=== PATIENT | female | born 1980 | race Caucasian/White ===

== ENCOUNTER 2016-06-15 23:09 | Emergency (ER) ==
[2016-06-15 23:23] VITALS: BP 136/75; TEMP 98.5; BMI 33.9
[2016-06-15] MEDS ORDERED: BACTRIM DS 800/160 MG PO STA (23:33)
--- NOTE | 2016-06-15 23:39 | ED.PDOC ---
General ED Provider: Dr. UZMA KHAN Chief Complaint: Abscess Stated Complaint: SPOT ON THE LEFT LOWER SIDE ABDOMEN, ON THE SURGICAL SCAR, HAD HYSTERECTOMY 3-2015. it drained some stuff 2-3 days ago, Time Seen by Physician: 23:34 Mode of Arrival: Walk-In Information Source: Patient Primary Care Provider: SERGEY RAMSEY Nursing and Triage Documentation Reviewed and Agree: Yes Skin Complaint Exam - Skin/Soft Tissue Complaint/Exam Symptoms Are: Still present Timing: Constant Initial Severity: Mild Current Severity: Mild Character: Reports: Redness, Painful. Denies: Swelling, Raised Aggravating: Reports: Touch Alleviating: Reports: None Associated Signs and Symptoms: Reports: Drainage, Tenderness. Denies: Fever, Chills, Itching, Bruising, Red streaks, Joint swelling Related Surgical History: Reports: None Skin Findings: Present: Erythema, Induration. Absent: Fluctuant mass Differential Diagnoses: Cellulitis Review of Systems - Review Of Systems Constitutional: Reports: No symptoms Eyes: Reports: No symptoms Ears, Nose, Mouth, Throat: Reports: No symptoms Respiratory: Reports: No symptoms Cardiac: Reports: No symptoms GI: Reports: No symptoms : Reports: No symptoms Musculoskeletal: Reports: No symptoms Skin: Reports: No symptoms Neurological: Reports: No symptoms Endocrine: Reports: No symptoms Hematologic/Lymphatic: Reports: No symptoms All Other Systems: Reviewed and Negative Past Medical History - Past Medical History Previously Healthy: No Endocrine: Reports: None Cardiovascular: Reports: None Respiratory: Reports: None Hematological: Reports: None Gastrointestinal: Reports: Other (Irritable bowel syndrome. 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 Denies: None (Partial hysterectomy. Ablation of bladder. ) - Family History Family History: Reports: None - Social History Smoking Status: Current every day smoker, Heavy tobacco smoker Smoking Cessation Counseling Time: > 3 min - 10 min Hx Substance Use: No Alcohol Screening: None - Immunizations Tetanus Shot up to Date: Yes Physical Exam - Physical Exam Appearance: Well-appearing, No pain distress, Well-nourished Eyes: MUSA, EOMI, Conjunctiva clear ENT: Ears normal, Nose normal, Oropharynx normal Respiratory: Airway patent, Breath sounds clear, Breath sounds equal, Respirations nonlabored Cardiovascular: RRR, Pulses normal, No rub, No murmur GI/: Soft, Nontender, No masses, Bowel sounds normal, No Organomegaly Musculoskeletal: Normal strength, ROM intact, No edema, No calf tenderness Skin: Warm, Dry, Normal color Neurological: Sensation intact, Motor intact, Reflexes intact, Cranial nerves intact, Alert, Oriented Psychiatric: Affect appropriate, Mood appropriate Critical Care Note - Critical Care Note Total Time (mins): 0 Course - Course Orders, Labs, Meds: Orders Category Date Time Status Sulfamethoxazole/Trimethoprim [Bactrim Ds 800/160 mg] MEDS 06/15/16 23:33 Discontinued 1 tab PO ONCE STA Medications Discontinued Medications Generic Name Dose Route Start Last Admin Trade Name Freq PRN Reason Stop Dose Admin Trimethoprim/Sulfamethoxazole 1 tab 06/15/16 23:33 Bactrim Ds 800/160 Mg PO 06/15/16 23:34 ONCE STA Vital Signs: Temp Pulse Resp BP Pulse Ox 06/15/16 23:10 98.5 F 82 18 136/75 100 Departure - Departure Time of Disposition: 23:50 Disposition: HOME SELF-CARE Discharge Problem: Cellulitis Qualifiers: Site of cellulitis: trunk Site of cellulitis of trunk: abdominal wall Qualifier Code: (L03.311) Cellulitis of abdominal wall Discharge Problem: (Ruled Out): Abscess or cellulitis of gluteal region Instructions: Cellulitis (ED) Condition: Stable Pt referred to PMD for follow-up: Yes Additional Instructions: skin hygiene keep area clean If not better come back Prescriptions: Sulfamethoxazole/Trimethoprim [Bactrim Ds 800/160 mg] 1 tab PO Q12HR #20 tablet Allergies/Adverse Reactions: Allergies amoxicillin trihydrate [From Augmentin] Adverse Reaction (Verified 06/15/16 23: 20) clarithromycin [From Biaxin] Adverse Reaction (Verified 06/15/16 23:20) morphine Adverse Reaction (Verified 06/15/16 23:20) NSAIDS (Non-Steroidal Anti-Inflamma Adverse Reaction (Verified 06/15/16 23:20) ondansetron HCl [From Zofran (as hydrochloride)] Adverse Reaction (Verified 23:20) Itching potassium clavulanate [From Augmentin] Adverse Reaction (Verified 06/15/16 23:20 ) Home Medications: Ambulatory Orders Acetaminophen [Tylenol] 1,000 mg PO Q8H PRN 06/15/16 Sulfamethoxazole/Trimethoprim [Bactrim Ds 800/160 mg] 1 tab PO Q12HR #20 tablet 06/15/16 Disposition Discussed With: Patient, Family
== END 2016-06-15 23:45 | disposition home or self-care (01) ==
LOC: ED 23:09
DX: L03.311 Cellulitis of abdominal wall (principal); F17.210 Nicotine dependence, cigarettes, uncomplicated
CPT/HCPCS: 99282

== ENCOUNTER 2016-06-28 17:24 | Emergency (ER) ==
[2016-06-28 17:32] VITALS: BP 126/81; TEMP 98.9; BMI 33.9
--- NOTE | 2016-06-28 17:42 | ED.PDOC ---
General ED Provider: Dr. OLIMPIA SCRUGGS JR Chief Complaint: Respiratory Complaint Stated Complaint: Sore throat, cough. Rash to upper palate. Sneezing. SOA. Has been taking OTC meds for cough/cold[End]6 days 98.9 89 20 98% 125/81 7.10 Time Seen by Physician: 17:42 Mode of Arrival: Walk-In Information Source: Patient Exam Limitations: No limitations Primary Care Provider: SERGEY RAMSEY Nursing and Triage Documentation Reviewed and Agree: No Review of Systems - Review Of Systems Constitutional: Reports: No symptoms Eyes: Reports: No symptoms Ears, Nose, Mouth, Throat: Reports: Nose discharge, Mouth pain Respiratory: Reports: Cough, Short of air Cardiac: Reports: No symptoms GI: Reports: No symptoms : Reports: No symptoms Musculoskeletal: Reports: No symptoms Skin: Reports: No symptoms Neurological: Reports: No symptoms Endocrine: Reports: No symptoms Hematologic/Lymphatic: Reports: No symptoms All Other Systems: Other Past Medical History - Past Medical History Previously Healthy: No Endocrine: Reports: None Cardiovascular: Reports: None Respiratory: Reports: None Hematological: Reports: None Gastrointestinal: Reports: Other (Irritable bowel syndrome. 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 Denies: None ( Partial hysterectomy. Ablation of bladder. ) - Family History Family History: Reports: None - Social History Smoking Status: Current every day smoker, Heavy tobacco smoker, Chews tobacco Hx Substance Use: No Alcohol Screening: None Physical Exam - Physical Exam Appearance: Ill-appearing Ill-appearing: Mild Pain Distress: Mild Eyes: MUSA, EOMI, Conjunctiva clear ENT: Ears normal, Nose normal, Erythema Neck: Supple Respiratory: Airway patent, Breath sounds clear, Breath sounds equal, Respirations nonlabored, Rhonchi (still smoking) Cardiovascular: RRR, Pulses normal, No rub, No murmur GI/: Soft, Nontender, No masses, Bowel sounds normal, No Organomegaly Musculoskeletal: Normal strength, ROM intact, No edema, No calf tenderness Skin: Warm, Dry, Normal color Neurological: Sensation intact, Motor intact, Reflexes intact, Cranial nerves intact, Alert, Oriented Critical Care Note - Critical Care Note Total Time (mins): 0 Course - Course Vital Signs: Temp Pulse Resp BP Pulse Ox 06/28/16 17:26 98.9 F 89 20 126/81 98 Departure - Departure Time of Disposition: 17:47 Disposition: HOME SELF-CARE Discharge Problem: RTI (respiratory tract infection) Seasonal rhinitis Qualifiers: Allergic rhinitis trigger: unspecified Qualifier Code: (J30.2) Other seasonal allergic rhinitis Instructions: Allergic Rhinitis (ED), Upper Respiratory Infection (ED) Condition: Good Pt referred to PMD for follow-up: Yes Additional Instructions: antihistamine or antihistamine decongestant for 4-5 days then as needed plenty of fluids clear liquids tylenol for discomfort recheck PMD if fever productive cough or worsening Prescriptions: Loratadine/Pseudoephedrine [Claritin-D 12 Hour Tablet] 1 each PO BID PRN #60 tab.er.12h PRN Reason: Allergy Symptoms Allergies/Adverse Reactions: Allergies amoxicillin trihydrate [From Augmentin] Adverse Reaction (Verified 06/28/16 17: 32) clarithromycin [From Biaxin] Adverse Reaction (Verified 06/28/16 17:32) morphine Adverse Reaction (Verified 06/28/16 17:32) NSAIDS (Non-Steroidal Anti-Inflamma Adverse Reaction (Verified 06/28/16 17:32) ondansetron HCl [From Zofran (as hydrochloride)] Adverse Reaction (Verified 09/09 17:32) Itching potassium clavulanate [From Augmentin] Adverse Reaction (Verified 06/28/16 17:32 ) Home Medications: Ambulatory Orders Loratadine/Pseudoephedrine [Claritin-D 12 Hour Tablet] 1 each PO BID PRN #60 tab.er.12h 06/28/16
== END 2016-06-28 18:13 | disposition home or self-care (01) ==
LOC: ED 17:24
DX: J06.9 Acute upper respiratory infection, unspecified (principal); J30.2 Other seasonal allergic rhinitis; F17.210 Nicotine dependence, cigarettes, uncomplicated
CPT/HCPCS: 87651; 87880; 99283

== ENCOUNTER 2016-07-28 20:49 | Emergency (ER) ==
[2016-07-28 20:50] VITALS: BMI 33.9
[2016-07-28 21:02] VITALS: BP 140/85; TEMP 98.2
--- NOTE | 2016-07-28 21:02 | ED.PDOC ---
General ED Provider: Dr. UZMA KHAN Chief Complaint: Tooth Problem Stated Complaint: RIGHT LOWER TOOTH BROKE TODAY, HAVE F/U WITH DENTIST NEXT WEDNESDAY. Time Seen by Physician: 21:01 Mode of Arrival: Walk-In Information Source: Patient Primary Care Provider: SERGEY RAMSEY Nursing and Triage Documentation Reviewed and Agree: Yes EENT Complaint Exam - Dental/Oral Complaint/Exam Mechanism of Injury: No known trauma Symptoms Are: Still present Timing: Constant Initial Severity: Moderate Current Severity: Moderate Character: Reports: Dull, Aching Aggravating: Reports: Cold, Chewing Alleviating: Reports: None Associated Signs and Symptoms: Reports: Swelling, Foul odor, Foul taste in mouth Cardiac Risk Factors: Reports: None Dental/Oral Surgical History: Reports: None Tooth Findings: Present: Dental fracture, Cellulitis Cervical Lymphadenopathy Present: No Facial Swelling Present: No Teeth Picture: 1 - FRACTURED TOOTH. Differential Diagnoses: Dental Caries, Fractured Tooth, Gingivitis Review of Systems - Review Of Systems Constitutional: Reports: No symptoms Eyes: Reports: No symptoms Ears, Nose, Mouth, Throat: Reports: Mouth pain Respiratory: Reports: No symptoms Cardiac: Reports: No symptoms GI: Reports: No symptoms : Reports: No symptoms Musculoskeletal: Reports: No symptoms Skin: Reports: No symptoms Neurological: Reports: No symptoms Endocrine: Reports: No symptoms Hematologic/Lymphatic: Reports: No symptoms All Other Systems: Reviewed and Negative Past Medical History - Past Medical History Previously Healthy: No Endocrine: Reports: None Cardiovascular: Reports: None Respiratory: Reports: None Hematological: Reports: None Gastrointestinal: Reports: Other (Irritable bowel syndrome. 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 Denies: None ( Partial hysterectomy. Ablation of bladder. ) - Family History Family History: Reports: None - Social History Smoking Status: Current every day smoker, Heavy tobacco smoker, Chews tobacco Smoking Cessation Counseling Time: > 3 min - 10 min Hx Substance Use: No Alcohol Screening: None - Immunizations Tetanus Shot up to Date: Yes Physical Exam - Physical Exam Appearance: Well-appearing, No pain distress, Well-nourished Eyes: MUSA, EOMI, Conjunctiva clear ENT: Ears normal, Nose normal, Oropharynx normal Respiratory: Airway patent, Breath sounds clear, Breath sounds equal, Respirations nonlabored Cardiovascular: RRR, Pulses normal, No rub, No murmur GI/: Soft, Nontender, No masses, Bowel sounds normal, No Organomegaly Musculoskeletal: Normal strength, ROM intact, No edema, No calf tenderness Skin: Warm, Dry, Normal color Neurological: Sensation intact, Motor intact, Reflexes intact, Cranial nerves intact, Alert, Oriented Psychiatric: Affect appropriate, Mood appropriate Critical Care Note - Critical Care Note Total Time (mins): 0 Course - Course Vital Signs: Temp Pulse Resp BP Pulse Ox 07/28/16 20:50 98.2 F 97 H 20 140/85 98 Departure - Departure Time of Disposition: 21:05 Disposition: HOME SELF-CARE Discharge Problem: Toothache Condition: Stable Pt referred to PMD for follow-up: Yes Additional Instructions: NEEDS F/U WITH DENTIST DENTAL HYGIENE Prescriptions: Clindamycin HCl 300 mg PO TID #15 capsule Hydrocodone/Acetaminophen [[place] 5-325 Tablet] 1 tab PO TID PRN #12 tablet PRN Reason: PAIN Allergies/Adverse Reactions: Allergies amoxicillin trihydrate [From Augmentin] Adverse Reaction (Verified 07/28/16 20: 55) clarithromycin [From Biaxin] Adverse Reaction (Verified 07/28/16 20:55) morphine Adverse Reaction (Verified 07/28/16 20:55) NSAIDS (Non-Steroidal Anti-Inflamma Adverse Reaction (Verified 07/28/16 20:55) ondansetron HCl [From Zofran (as hydrochloride)] Adverse Reaction (Verified 08/10 20:55) Itching potassium clavulanate [From Augmentin] Adverse Reaction (Verified 07/28/16 20:55 ) Home Medications: Ambulatory Orders Clindamycin HCl 300 mg PO TID #15 capsule 07/28/16 Hydrocodone/Acetaminophen [[place] 5-325 Tablet] 1 tab PO TID PRN #12 tablet 07/28 Disposition Discussed With: Patient, Family
== END 2016-07-28 21:08 | disposition home or self-care (01) ==
LOC: ED 20:49
DX: S02.5XXA Fracture of tooth (traumatic), initial encounter for closed fracture (principal); K08.89 Other specified disorders of teeth and supporting structures; F17.210 Nicotine dependence, cigarettes, uncomplicated
CPT/HCPCS: 99282

== ENCOUNTER 2016-09-15 22:43 | Emergency (ER) ==
[2016-09-15 22:44] VITALS: BMI 33.9
[2016-09-15 22:52] VITALS: BP 117/71; TEMP 97.2
[2016-09-15] MEDS ORDERED: PHENERGAN 25 MG/ML VIAL IM STA (23:18)
[2016-09-15] MEDS ORDERED: DEMEROL 50 MG/ML SYRINGE IM STA (23:18)
--- NOTE | 2016-09-15 23:23 | ED.PDOC ---
General ED Provider: Dr. SHANT GALINDO Chief Complaint: Tooth Problem Stated Complaint: Xuan is a 36 year old female who comes to the ER with compalins that tooth on the right lower jaw is fractured and has severe pain that radiates to the ear and with swelling of the right jaw. Time Seen by Physician: 23:19 Mode of Arrival: Walk-In Information Source: Patient Exam Limitations: No limitations Primary Care Provider: SERGEY RAMSEY Nursing and Triage Documentation Reviewed and Agree: Yes EENT Complaint Exam - Dental/Oral Complaint/Exam Mechanism of Injury: No known trauma Onset/Duration: 1 day Symptoms Are: Still present Timing: Constant Initial Severity: Severe Current Severity: Severe Location: Left lower jaw Character: Reports: Aching, Throbbing Aggravating: Reports: Heat, Cold, Chewing Alleviating: Reports: None Associated Signs and Symptoms: Reports: Swelling (right lower jaw and gum with abscess ), Foul taste in mouth Cardiac Risk Factors: Reports: None Dental/Oral Surgical History: Reports: Third Molar Extractions Tooth Findings: Present: Gross decay, Gross caries, Dental fracture, Abcess Cervical Lymphadenopathy Present: Yes Facial Swelling Present: Yes Bleeding Present: No Oropharynx Findings: Absent: Clots, Active bleeding Septal Hematoma: No Foreign Body Present: No Dysphagia Present: No Drooling Present: No Uvula Midline: No Elizabeth-tonsillar Fluctuence: No Trismus Present: No Teeth Picture: 1 - fractured 2 - gross decay Differential Diagnoses: Dental Abcess, Dental Caries, Fractured Tooth Review of Systems - Review Of Systems Constitutional: Reports: No symptoms Eyes: Reports: No symptoms Ears, Nose, Mouth, Throat: Reports: Mouth pain Respiratory: Reports: No symptoms Cardiac: Reports: No symptoms GI: Reports: No symptoms : Reports: No symptoms Musculoskeletal: Reports: No symptoms Skin: Reports: No symptoms Neurological: Reports: No symptoms Endocrine: Reports: No symptoms Hematologic/Lymphatic: Reports: No symptoms All Other Systems: Reviewed and Negative Past Medical History - Past Medical History Previously Healthy: No Endocrine: Reports: None Cardiovascular: Reports: None Respiratory: Reports: None Hematological: Reports: None Gastrointestinal: Reports: Other (Irritable bowel syndrome. 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 Denies: None ( Partial hysterectomy. Ablation of bladder. ) - Family History Family History: Reports: None - Social History Smoking Status: Current every day smoker, Heavy tobacco smoker, Chews tobacco Hx Substance Use: No Alcohol Screening: None - Immunizations Tetanus Shot up to Date: Yes Physical Exam - Physical Exam Appearance: Ill-appearing, Well-nourished Ill-appearing: Mild Pain Distress: Severe Eyes: MUSA, EOMI, Conjunctiva clear ENT: Ears normal, Nose normal Neck: Supple Respiratory: Airway patent, Breath sounds clear Cardiovascular: RRR, Pulses normal, No rub Musculoskeletal: Normal strength Skin: Warm, Dry Psychiatric: Anxious Critical Care Note - Critical Care Note Total Time (mins): 0 Course - Course Orders, Labs, Meds: Orders Category Date Time Status Meperidine HCl/Pf [Demerol 50 mg/ml Syringe] MEDS 09/15/16 23:18 Stat 50 mg IM ONCE STA Promethazine HCl [Phenergan 25 mg/ml Vial] MEDS 09/15/16 23:18 Stat 25 mg IM ONCE STA Medications Discontinued Medications Generic Name Dose Route Start Last Admin Trade Name Todq PRN Reason Stop Dose Admin Meperidine HCl 50 mg 09/15/16 23:18 Demerol 50 Mg/Ml Syringe IM 09/15/16 23:19 ONCE STA Promethazine HCl 25 mg 09/15/16 23:18 Phenergan 25 Mg/Ml Vial IM 09/15/16 23:19 ONCE STA Vital Signs: Temp Pulse Resp BP Pulse Ox 09/15/16 22:44 97.2 F L 86 16 117/71 97 Departure - Departure Time of Disposition: 23:19 Disposition: HOME SELF-CARE Discharge Problem: Dental abscess Instructions: Dental Abscess (ED) Condition: Fair Pt referred to PMD for follow-up: Yes Additional Instructions: Take Medications as prescribed. follow up with your dentist in 3 days. Prescriptions: Hydrocodone/Acetaminophen [[place] 5-325 Tablet] 1 tab PO Q6HR PRN #12 tablet PRN Reason: PAIN Clindamycin HCl [Cleocin HCl] 300 mg PO TID #30 capsule Allergies/Adverse Reactions: Allergies amoxicillin trihydrate [From Augmentin] Adverse Reaction (Verified 09/15/16 22: 52) clarithromycin [From Biaxin] Adverse Reaction (Verified 09/15/16 22:52) morphine Adverse Reaction (Verified 09/15/16 22:52) NSAIDS (Non-Steroidal Anti-Inflamma Adverse Reaction (Verified 09/15/16 22:52) ondansetron HCl [From Zofran (as hydrochloride)] Adverse Reaction (Verified 22:52) Itching potassium clavulanate [From Augmentin] Adverse Reaction (Verified 09/15/16 22:52 ) Home Medications: Ambulatory Orders Clindamycin HCl 300 mg PO TID #15 capsule 07/28/16 Hydrocodone/Acetaminophen [[place] 5-325 Tablet] 1 tab PO TID PRN #12 tablet 07/28 Clindamycin HCl [Cleocin HCl] 300 mg PO TID #30 capsule 09/15/16 Hydrocodone/Acetaminophen [[place] 5-325 Tablet] 1 tab PO Q6HR PRN #12 tablet
== END 2016-09-16 00:10 | disposition home or self-care (01) ==
LOC: ED 22:43
DX: K04.7 Periapical abscess without sinus (principal); K02.7 Dental root caries; S02.5XXA Fracture of tooth (traumatic), initial encounter for closed fracture; F17.210 Nicotine dependence, cigarettes, uncomplicated
CPT/HCPCS: 96372; 99283

== ENCOUNTER 2016-10-09 00:30 | Emergency (ER) ==
[2016-10-09 00:31] VITALS: BMI 33.9
[2016-10-09 00:48] VITALS: BP 126/83; TEMP 97.4
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
--- NOTE | 2016-10-09 01:23 | DI ---
Exam: Right elbow two views HISTORY: Elbow injury and pain Findings / impression: No significant bony or articular abnormality. Negative exam.
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
== END 2016-10-09 01:30 | disposition home or self-care (01) ==
LOC: ED 00:30
DX: S63.501A Unspecified sprain of right wrist, initial encounter (principal); S50.11XA Contusion of right forearm, initial encounter; Y04.8XXA Assault by other bodily force, initial encounter; F17.210 Nicotine dependence, cigarettes, uncomplicated
CPT/HCPCS: 99282

== ENCOUNTER 2017-03-09 19:48 | Emergency (ER) ==
[2017-03-09 19:51] VITALS: BP 143/80; TEMP 97.6; BMI 32.3
[2017-03-09] MEDS ORDERED: IMITREX SUBCUT STA (20:34)
[2017-03-09] MEDS ORDERED: PHENERGAN 25 MG/ML VIAL IM STA (20:34)
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
== END 2017-03-09 21:47 | disposition home or self-care (01) ==
LOC: ED 19:48
DX: G43.909 Migraine, unspecified, not intractable, without status migrainosus (principal); F17.210 Nicotine dependence, cigarettes, uncomplicated
CPT/HCPCS: 96372; 99283

== ENCOUNTER 2017-03-21 16:18 | Emergency (ER) ==
[2017-03-21 16:18] VITALS: BMI 32.3
[2017-03-21] MEDS ORDERED: ZOFRAN 4 MG/2 ML IM STA (16:29)
[2017-03-21 16:38] VITALS: BP 115/72; TEMP 98.4
--- NOTE | 2017-03-21 16:42 | ED.PDOC ---
General ED Provider: Dr. UZMA KHAN Chief Complaint: Nausea/Vomiting Stated Complaint: voming and diarrhea , watery, feeling tired,. ] Time Seen by Physician: 16:40 Mode of Arrival: Walk-In Information Source: Patient Primary Care Provider: SERGEY RAMSEY Nursing and Triage Documentation Reviewed and Agree: Yes GI Complaint Exam - Vomiting/Diarrhea Complaint/Exam Symptoms Are: Still present Episodes of Vomiting over last 24 Hours: 2 Episodes of Diarrhea Over Last 24 Hours: 4 Initial Severity: Mild Current Severity: Mild Character of Vomiting: Reports: Non-bilious Character of Diarrhea: Reports: Watery Aggravating: Reports: None Alleviating: Reports: None Associated Signs and Symptoms: Denies: Dizziness, Light-headedness, Melena, Hematemesis, Fever, Abdominal pain, Cramping Recent Positive Test: No Use of Oral Contraceptives: No Use of Depoprovera: No Compliant With Contraceptive Use: No Non-GI Risk Factors: Reports: None Surgical Obstruction Risk Factors: Reports: None Related Surgical History: Reports: None Abdominal Findings: Present: None Differential Diagnoses: Dehydration, Viral Gastroenteritis Review of Systems - Review Of Systems Constitutional: Reports: No symptoms Eyes: Reports: No symptoms Ears, Nose, Mouth, Throat: Reports: No symptoms Respiratory: Reports: No symptoms Cardiac: Reports: No symptoms GI: Reports: Diarrhea, Nausea, Vomiting : Reports: No symptoms Musculoskeletal: Reports: No symptoms Skin: Reports: No symptoms Neurological: Reports: No symptoms Endocrine: Reports: No symptoms Hematologic/Lymphatic: Reports: No symptoms All Other Systems: Reviewed and Negative Past Medical History - Past Medical History Previously Healthy: No Endocrine: Reports: None Cardiovascular: Reports: None Respiratory: Reports: None Hematological: Reports: None Gastrointestinal: Reports: Other (Irritable bowel syndrome. 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 Denies: None ( Partial hysterectomy. Ablation of bladder. ) - Family History Family History: Reports: None - Social History Smoking Status: Current some day smoker Hx Substance Use: No Alcohol Screening: None - Immunizations Tetanus Shot up to Date: Yes Physical Exam - Physical Exam Appearance: Ill-appearing, Obese Eyes: MUSA, EOMI, Conjunctiva clear ENT: Ears normal, Nose normal, Oropharynx normal Respiratory: Airway patent, Breath sounds clear, Breath sounds equal, Respirations nonlabored Cardiovascular: RRR, Pulses normal, No rub, No murmur GI/: Soft, Nontender, No masses, Bowel sounds normal, No Organomegaly Musculoskeletal: Normal strength, ROM intact, No edema, No calf tenderness Skin: Warm, Dry, Normal color Neurological: Sensation intact, Motor intact, Reflexes intact, Cranial nerves intact, Alert, Oriented Psychiatric: Affect appropriate, Mood appropriate Interpretation - Radiology Interpretation Radiology Interpretation By: Radiologist Radiology Results: Positive Exam Interpreted: CT Scan Critical Care Note - Critical Care Note Total Time (mins): 20 Course - Course Hematology/Chemistry: 03/21/17 16:45 03/21/17 16:45 Orders, Labs, Meds: Lab Review 03/21/17 03/21/17 16:45 16:45 WBC 6.88 RBC 4.81 Hgb 14.3 Hct 42.4 MCV 88.1 MCH 29.7 MCHC 33.7 RDW Coeff of Casa 13.4 Plt Count 287 Immature Gran % (Auto) 0.1 Neut % (Auto) 74.3 Lymph % (Auto) 15.8 Josephine % (Auto) 4.8 Eos % (Auto) 4.9 Baso % (Auto) 0.1 Immature Gran # (Auto) 0.0 Neut # 5.1 Lymph # 1.1 Josephine # 0.3 L Eos # 0.3 Baso # 0.0 Sodium 139 Potassium 3.4 L Chloride 107 Carbon Dioxide 22 Anion Gap 13.4 BUN 9 Creatinine 0.76 Estimated GFR (MDRD) 85.00 BUN/Creatinine Ratio 11.84 Glucose 95 Calcium 9.5 Total Bilirubin 0.39 AST 10 L ALT 15 Alkaline Phosphatase 81 Total Protein 7.6 Albumin 3.7 Globulin 3.9 Albumin/Globulin Ratio 0.95 Orders Category Date Time Status CBC W/ AUTO DIFF Stat LAB 03/21/17 16:45 Completed COMPREHENSIVE METABOLIC PANEL Stat LAB 03/21/17 16:45 Completed Orphenadrine Citrate [Norflex] MEDS 03/21/17 17:42 Discontinued 60 mg IM ONCE STA Potassium Chloride [K-Dur] MEDS 03/21/17 17:16 Discontinued 40 meq PO ONCE STA Promethazine HCl [Phenergan 25 mg/ml Vial] MEDS 03/21/17 16:55 Discontinued 25 mg IM ONCE STA CT ABDOMEN/PELVIS WO CONTRAST Stat RADS 03/21/17 16:41 Completed Medications Discontinued Medications Generic Name Dose Route Start Last Admin Trade Name Linnea PRN Reason Stop Dose Admin Orphenadrine Citrate 60 mg 03/21/17 17:42 Norflex IM 03/21/17 17:43 ONCE STA Potassium Chloride 40 meq 03/21/17 17:16 03/21/17 17:38 K-Dur PO 03/21/17 17:17 40 meq ONCE STA Administration Promethazine HCl 25 mg 03/21/17 16:55 03/21/17 17:05 Phenergan 25 Mg/Ml Vial IM 03/21/17 16:56 25 mg ONCE STA Administration Vital Signs: Temp Pulse Resp BP Pulse Ox 03/21/17 16:19 98.4 F 117 H 16 115/72 98 Departure - Departure Time of Disposition: 17:47 Disposition: HOME SELF-CARE Discharge Problem: Gastroenteritis, Hypokalemia Instructions: Dehydration (ED), Gastroenteritis (ED) Condition: Stable Pt referred to PMD for follow-up: Yes Additional Instructions: Increase Hydration. Soft diet Prescriptions: Promethazine HCl [Phenergan Tab] 25 mg PO Q12H #10 tablet Allergies/Adverse Reactions: Allergies amoxicillin trihydrate [From Augmentin] Adverse Reaction (Verified 03/09/17 19: 52) clarithromycin [From Biaxin] Adverse Reaction (Verified 03/09/17 19:52) ketorolac [From Toradol] Adverse Reaction (Verified 03/21/17 16:31) morphine Adverse Reaction (Verified 03/09/17 19:52) NSAIDS (Non-Steroidal Anti-Inflamma Adverse Reaction (Verified 03/09/17 19:52) ondansetron HCl [From Zofran (as hydrochloride)] Adverse Reaction (Verified 19:52) Itching potassium clavulanate [From Augmentin] Adverse Reaction (Verified 03/09/17 19:52 ) Home Medications: Ambulatory Orders Hydrocodone/Acetaminophen [[place] 5-325 Tablet] 1 tab PO Q6HR PRN #12 tablet Clonazepam [Klonopin] 1 mg PO BID 10/09/16 Promethazine HCl [Phenergan Tab] 25 mg PO Q6H PRN #15 tablet 03/09/17 Sumatriptan Succinate [Imitrex] 50 mg PO Q2HR PRN #12 tablet 03/09/17 Promethazine HCl [Phenergan Tab] 25 mg PO Q12H #10 tablet 03/21/17 Disposition Discussed With: Patient, Family
[2017-03-21 16:50] LABS: BASOPHILS % (AUTO) 0.1 % (0.0-3.0); EOSINOPHILS # (AUTO) 0.3 K/ul (0.0-0.7); EOSINOPHILS % (AUTO) 4.9 % (0.0-7.0); HEMATOCRIT 42.4 % (37.0-47.0); HEMOGLOBIN 14.3 g/dl (12.0-16.0); IMMATURE GRANULOCYTE % (AUTO) 0.1 % (0.0-5.0); LYMPHOCYTES # (AUTO) 1.1 K/uL (0.60-3.4); LYMPHOCYTES % (AUTO) 15.8 (10.0-50.0); MEAN CORPUSCULAR HEMOGLOBIN 29.7 pg (27.0-31.0); MEAN CORPUSCULAR HGB CONC 33.7 (31.8-35.4); MEAN CORPUSCULAR VOLUME 88.1 fl (81.0-99.0); MONOCYTES # (AUTO) 0.3 K/uL (0.4-2.0); MONOCYTES % (AUTO) 4.8 (0-10); NEUTROPHILS # (AUTO) 5.1 K/ul (2.0-6.9); NEUTROPHILS % (AUTO) 74.3; PLATELET COUNT 287 10^3/uL (140-440); RED BLOOD COUNT 4.81 10^6/ul (4.20-5.40); WHITE BLOOD COUNT 6.88 K/ul (4.6-10.2)
[2017-03-21] MEDS ORDERED: PHENERGAN 25 MG/ML VIAL IM STA (16:55)
[2017-03-21 17:10] LABS: ALBUMIN 3.7 g/dL (3.4-5.0); ALBUMIN/GLOBULIN RATIO 0.95; ANION GAP 13.4; BILIRUBIN,TOTAL 0.39 mg/dL (0.00-1.20); BUN/CREATININE RATIO 11.84; CALCIUM 9.5 mg/dL (8.2-10.2); CREATININE 0.76 mg/dL (0.60-1.30); POTASSIUM 3.4 mmol/L (3.5-5.10); TOTAL PROTEIN 7.6 g/dL (6.4-8.2)
[2017-03-21] MEDS ORDERED: K-DUR PO STA (17:16)
--- NOTE | 2017-03-21 17:16 | CT ---
EXAM: CT scan abdomen pelvis without contrast HISTORY: Abdominal pain COMPARISON: CT scan abdomen pelvis 08/15/2015 FINDINGS: Contiguous axial images obtained through the abdomen pelvis without contrast utilizing 3-m m collimation. Sagittal and coronal reconstructions were imaged and reviewed.. The visualized lung bases are clear. There has been prior cholecystectomy. The liver, pancreas, spleen and adrenal gland s have normal unenhanced CT appearance. The kidneys are morphologically normal.. There is mild thic kening of the right colon which may be related to underdistension versus colitis.. There is no surro unding inflammatory changes There is a normal appendix. The abdominal aorta is normal in course and caliber. There is an umbilical hernia containing only fat.. There has been prior hysterectomy. The re is no free fluid or inflammatory changes. Bone windows reveals no evidence of lytic all blastic l esions. IMPRESSION: Status post cholecystectomy and hysterectomy. Mild thickening the right colon which may be related to underdistension versus colitis. There is no surrounding inflammatory changes. The terminal ileum and appendix are normal
[2017-03-21] MEDS ORDERED: NORFLEX IM STA (17:42)
== END 2017-03-21 18:20 | disposition home or self-care (01) ==
LOC: ED 16:18
DX: K52.9 Noninfective gastroenteritis and colitis, unspecified (principal); E87.6 Hypokalemia; E86.0 Dehydration; F17.210 Nicotine dependence, cigarettes, uncomplicated
CPT/HCPCS: 36415; 80053; 85025; 96372; 99283

== ENCOUNTER 2017-11-05 14:55 | Outpatient (CLI) ==
[2017-11-05 15:24] VITALS: BMI 30.7
== END 2017-11-05 14:58 | disposition critical access hospital (66) ==
LOC: AMBL 14:55
PROVIDERS: ATTEND Family Medicine
DX: S69.91XA Unspecified injury of right wrist, hand and finger(s), initial encounter (principal); S59.911A Unspecified injury of right forearm, initial encounter; M79.89 Other specified soft tissue disorders; W22.8XXA Striking against or struck by other objects, initial encounter

== ENCOUNTER 2017-11-05 15:03 | Emergency (ER) | payer OTHER ==
[2017-11-05 15:24] VITALS: BP 121/65; TEMP 98.6; BMI 30.7
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
[2017-11-05] MEDS ORDERED: ATIVAN IM STA (15:48)
--- NOTE | 2017-11-05 16:00 | DI ---
EXAM: Three views of the right wrist HISTORY: Trauma. COMPARISON: Right wrist x-rays 10/09/2016 FINDINGS: There is minimal narrowing of the radiocarpal joint. There is no displaced fracture or dis location. There is mild negative ulnar variance. Carpal bones and metacarpal bones are normal. The soft tissues are normal. IMPRESSION: No acute abnormality of the right wrist.
== END 2017-11-05 16:38 | disposition home or self-care (01) ==
LOC: ED 15:03
DX: S60.211A Contusion of right wrist, initial encounter (principal); W22.8XXA Striking against or struck by other objects, initial encounter; F17.210 Nicotine dependence, cigarettes, uncomplicated
CPT/HCPCS: 96372; 99283